=== PATIENT | male | born 1965 | race Caucasian/White ===

== ENCOUNTER 2024-03-04 09:44 | Observation (INO) | payer BC ==
[2024-03-04] MEDS: SODIUM CHLORIDE 0.9% 500 ML 500 ML IV ONE (10:14)
[2024-03-04] MEDS: SODIUM CHLORIDE 0.9% 1,000 ML IV ONE (10:15)
[2024-03-04] MEDS: SODIUM CHLORIDE 0.9% 1,000 ML IV SCH (10:16)
[2024-03-04 10:21] LABS: Basophils % (A) 0 %; Eosinophils % (A) 0 %; HCT 44.3 % (39.0-53.0); HGB 14.7 gm/dL (13.0-17.5); Lymphocytes # (A) 1.7 k/uL (1.0-4.8); Lymphocytes % (A) 22 %; MCH 31.4 pg (25.0-35.0); MCHC 33.3 g/dL (31.0-37.0); MCV 94.3 fL (80.0-100.0); Mean Platelet Volume 8.4; Monocytes # (A) 0.7 k/uL (0-1.0); Monocytes % (A) 9 %; Neutrophils # (A) 5.3 k/uL (1.3-7.7); Neutrophils % (A) 65 %; Platelet Count 239 k/uL (150-450); RDW 12.5 % (11.5-15.5); WBC 8.1 k/uL (3.8-10.6)
[2024-03-04 10:25] LABS: ALT 45 U/L (4-49); AST 49 U/L (17-59); African American GFR (CKD) >90 (>60 ml/min/1.73 sqM); Albumin 4.3 g/dL (3.5-5.0); Alkaline Phosphatase 92 U/L (38-126); Anion Gap 19 mmol/L; Blood Urea Nitrogen 18 mg/dL (9-20); Calcium 8.4 mg/dL (8.4-10.2); Carbon Dioxide 22 mmol/L (22-30); Chloride 92 mmol/L (98-107); Glucose 110 mg/dL (74-99); Lipase 106 U/L (23-300); Magnesium 2.3 mg/dL (1.6-2.3); Non-African American GFR(CKD) >90 (>60 ml/min/1.73 sqM); Potassium 3.3 mmol/L (3.5-5.1); Sodium 133 mmol/L (137-145); Total Protein 7.1 g/dL (6.3-8.2)
--- NOTE | 2024-03-04 10:32 | ED ---
Alcohol HPI - General Chief Complaint: Alcohol Stated Complaint: ETOH Time Seen by Provider: 03/04/24 09:49 Source: patient, EMS, RN notes reviewed Mode of arrival: EMS Limitations: no limitations - History of Present Illness Initial Comments: 58-year-old male presents emergency department via EMS from [facility] for alcohol intoxication. Patient was trying to check in but he was too intoxicated and wanted to leave. Patient had EMS called and arrives here patient apparently drank more alcohol after he already had breath alcohol at .4. Patient states he drinks at least 1/2 gallon a day patient states has been at other hospitals and but has not completed rehab of recently. Patient denies recent drug use. No physical complaints. - Related Data Home Medications Medication Instructions Recorded Confirmed Atorvastatin [Lipitor] 80 mg PO HS 03/04/24 03/04/24 Escitalopram [Lexapro] 20 mg PO DAILY 03/04/24 03/04/24 Gabapentin 600 mg PO TID 03/04/24 03/04/24 busPIRone HCL [Buspar] 7.5 mg PO DAILY 03/04/24 03/04/24 rOPINIRole HCL [Requip] 0.5 mg PO HS 03/04/24 03/04/24 Allergies Allergy/AdvReac Type Severity Reaction Status Date / Time No Known Allergies Allergy Verified 03/04/24 11:31 Review of Systems ROS Statement: Those systems with pertinent positive or pertinent negative responses have been documented in the HPI. ROS Other: All systems not noted in ROS Statement are negative. Past Medical History Additional Past Medical History / Comment(s): Pt unable or unwilling to answer. History of Any Multi-Drug Resistant Organisms: None Reported Additional Past Surgical History / Comment(s): Pt unable or unwilling to answer. Past Psychological History: Anxiety, Depression Smoking Status: Current every day smoker Past Alcohol Use History: Heavy General Exam Limitations: no limitations General appearance: alert, in no apparent distress, appears intoxicated Head exam: Present: atraumatic, normocephalic, normal inspection Eye exam: Present: normal appearance, PERRL, EOMI. Absent: scleral icterus, conjunctival injection, periorbital swelling ENT exam: Present: mucous membranes moist. Absent: normal exam Neck exam: Present: normal inspection. Absent: tenderness, meningismus, lymphadenopathy Respiratory exam: Present: normal lung sounds bilaterally. Absent: respiratory distress, wheezes, rales, rhonchi, stridor Cardiovascular Exam: Present: regular rate, normal rhythm, normal heart sounds. Absent: systolic murmur, diastolic murmur, rubs, gallop, clicks GI/Abdominal exam: Present: soft, normal bowel sounds. Absent: distended, tenderness, guarding, rebound, rigid Course Vital Signs 03/04/24 09:47 Temperature 98.1 F Pulse Rate 88 Respiratory 16 Rate Blood Pressure 139/88 O2 Sat by Pulse 96 Oximetry Medical Decision Making - Medical Decision Making Was pt. sent in by a medical professional or institution (, [facility], [facility], urgent care, hospital, or senior care...) When possible be specific @ -[facility] Did you speak to anyone other than the patient for history (EMS, parent, family, police, friend...)? What history was obtained from this source @ -No Did you review nursing and triage notes (agree or disagree)? Why? @ -I reviewed and agree with nursing and triage notes Were old charts reviewed (outside hosp., previous admission, EMS record, old EKG, old radiological studies, urgent care reports/EKG's, senior care records)? Report findings @ -No old charts were reviewed Differential Diagnosis (chest pain, altered mental status, abdominal pain women, abdominal pain men, vaginal bleeding, weakness, fever, dyspnea, syncope, headache, dizziness, GI bleed, back pain, seizure, CVA, palpatations, mental health, musculoskeletal)? @ -Alcohol intoxication alcohol withdrawal hypomagnesemia hypokalemia hyponatremia, weakness EKG interpreted by me (3pts min.). @ -None X-rays interpreted by me (1pt min.). @ -None done CT interpreted by me (1pt min.). @ -None done U/S interpreted by me (1pt. min.). @ -None done What testing was considered but not performed or refused? (CT, X-rays, U/S, labs)? Why? @ -None What meds were considered but not given or refused? Why? @ -None Did you discuss the management of the patient with other professionals (professionals i.e. , [facility], [facility], lab, RT, psych nurse, social service technician, sanitation worker cleaning machinery, teacher, nuclear officer, case sealer)? Give summary @ -Dr. Bob for admission secondary to severe alcohol intoxication Was smoking cessation discussed for >3mins.? @ -No Was critical care preformed (if so, how long)? @ -No Were there social determinants of health that impacted care today? How? (Homelessness, low income, unemployed, alcoholism, drug addiction, transportation, low edu. Level, literacy, decrease access to med. care, skilled nursing, rehab)? @ -No Was there de-escalation of care discussed even if they declined (Discuss DNR or withdrawal of care, Hospice)? DNR status @ -No What co-morbidities impacted this encounter? (DM, HTN, Smoking, COPD, CAD, Cancer, CVA, ARF, Chemo, Hep., AIDS, mental health diagnosis, sleep apnea, morbid obesity)? @ -None Was patient admitted / discharged? Hospital course, mention meds given and route, prescriptions, significant lab abnormalities, going to OR and other perti nent info. @ -Admitted patient found to have blood alcohol 375. Patient placed on CIWA, alcohol withdrawal protoco patient did have mild hypokalemia which was replaced. Undiagnosed new problem with uncertain prognosis? @ -No Drug Therapy requiring intensive monitoring for toxicity (Heparin, Nitro, Insulin, Cardizem)? @ -No Were any procedures done? @ -No Diagnosis/symptom? @ -Alcohol desiccation, hypokalemia Acute, or Chronic, or Acute on Chronic? @ -Acute Uncomplicated (without systemic symptoms) or Complicated (systemic symptoms)? @ -Complicated Side effects of treatment? @ -No Exacerbation, Progression, or Severe Exacerbation? @ -No Poses a threat to life or bodily function? How? (Chest pain, USA, AL, pneumonia, PE, COPD, DKA, ARF, appy, cholecystitis, CVA, Diverticulitis, Homicidal, Suicidal, threat to staff... and all critical care pts) @ -No - Lab Data Result diagrams: 03/04/24 10:06 03/04/24 10:06 Lab Results 03/04/24 03/04/24 Range/Units 10:06 10:06 WBC 8.1 (3.8-10.6) k/uL RBC 4.70 (4.30-5.90) m/uL Hgb 14.7 (13.0-17.5) gm/dL Hct 44.3 (39.0-53.0) % MCV 94.3 (80.0-100.0) fL MCH 31.4 (25.0-35.0) pg MCHC 33.3 (31.0-37.0) g/dL RDW 12.5 (11.5-15.5) % Plt Count 239 (150-450) k/uL MPV 8.4 Neutrophils % 65 % Lymphocytes % 22 % Monocytes % 9 % Eosinophils % 0 % Basophils % 0 % Neutrophils # 5.3 (1.3-7.7) k/uL Lymphocytes # 1.7 (1.0-4.8) k/uL Monocytes # 0.7 (0-1.0) k/uL Eosinophils # 0.0 (0-0.7) k/uL Basophils # 0.0 (0-0.2) k/uL Sodium 133 L (137-145) mmol/L Potassium 3.3 L (3.5-5.1) mmol/L Chloride 92 L (98-107) mmol/L Carbon Dioxide 22 (22-30) mmol/L Anion Gap 19 mmol/L BUN 18 (9-20) mg/dL Creatinine 0.59 L (0.66-1.25) mg/dL Est GFR (CKD-EPI)AfAm >90 (>60 ml/min/1.73 sqM) Est GFR (CKD-EPI)NonAf >90 (>60 ml/min/1.73 sqM) Glucose 110 H (74-99) mg/dL Calcium 8.4 (8.4-10.2) mg/dL Magnesium 2.3 (1.6-2.3) mg/dL Total Bilirubin 1.0 (0.2-1.3) mg/dL AST 49 (17-59) U/L ALT 45 (4-49) U/L Alkaline Phosphatase 92 (38-126) U/L Total Protein 7.1 (6.3-8.2) g/dL Albumin 4.3 (3.5-5.0) g/dL Lipase 106 (23-300) U/L Serum Alcohol 375 H* mg/dL Disposition Clinical Impression: Alcoholic intoxication, Hypokalemia Disposition: ADMITTED IP TO THIS HOSP Condition: Fair Time of Disposition: 11:04
[2024-03-04 10:39] LABS: Alcohol 375 mg/dL
[2024-03-04] MEDS ORDERED: ONDANSETRON 4 MG/2 ML VIAL IVP PRN (11:04)
[2024-03-04] MEDS ORDERED: NALOXONE 0.4 MG/ML 1 ML VIAL IV PRN (11:04)
[2024-03-04] MEDS ORDERED: LORazepam 2 MG/ML INJ IV PRN ×2 (11:06)
[2024-03-04 11:13] LABS: Appearance,Urine Clear (Clear); Bilirubin,Urine Negative (Negative); Blood,Urine Negative (Negative); Color,Urine Colorless; Glucose,Urine (UA) Negative (Negative); Ketones,Urine 2+ (Negative); Leukocyte Esterase,Urine Negative (Negative); Nitrite,Urine Negative (Negative); Protein,Urine Negative (Negative); Specific Gravity,Urine 1.003 (1.001-1.035); Urobilinogen,Urine <2.0 mg/dL (<2.0)
[2024-03-04 11:33] LABS: Amphetamine Screen,Urine Not Detected (NotDetected); Barbiturate Screen,Urine Not Detected (NotDetected); Benzodiazepines Screen,Urine Not Detected (NotDetected); Cocaine Screen,Urine Detected (NotDetected); Methadone Screen, Urine Not Detected (NotDetected); Opiate Screen,Urine Not Detected (NotDetected); Oxycodone Screen, Urine Not Detected (NotDetected); Phencyclidine Screen,Urine Not Detected (NotDetected); Tricyclic Antidepressant,Urine Not Detected (NotDetected); Urn Cannabinoid Scrn Not Detected (NotDetected)
[2024-03-04] MEDS: POTASSIUM CHLORIDE ER 20 MEQ TAB.ER PO STA (11:40)
[2024-03-04] MEDS: LORazepam 1 MG TAB PO PRN (12:42)
[2024-03-04] MEDS: LORazepam 2 MG/ML INJ IV PRN (14:02)
--- NOTE | 2024-03-04 15:29 | P.HPIM ---
History of Present Illness H&P Date: 03/04/24 58 year old M with PMH of EtOH abuse, RLS, Depression and HLD presents to the ED from [facility] for alcohol intoxication. Drinks 1/2 gallon liquor daily, last drink yesterday. Reports withdrawal symptoms when not drinking, EtOH induced seizures a few years ago. No current complaints except hunger. Reports not eating much food over the past week. Smokes 1 pack of cigarettes daily. BP 127/78, HR 102, RR 16, T 97.6F, 94% on 2L NC. CBC unremarkable. CMP Na 133, K 3.3, Cl 92, Cr 0.59, glu 110. Mag 2.3. Lipase 106. UA 2+ ketones. UDS + cocaine. Serum EtOH 375. General: non toxic, no distress, appears at stated age Derm: warm, dry Head: atraumatic, normocephalic, symmetric Eyes: EOMI, no lid lag, anicteric sclera Mouth: no lip lesion, mucus membranes moist Cardiovascular: Good distal perfusion in all 4 extremities. Normal S1S2. Lungs: Breathing comfortably , no accessory muscle use, CTA BL Ext: no gross muscle atrophy, no edema, no contractures Neuro: no focal neuro deficits Psych: Alert, oriented, appropriate affect Based on my assessment of this patient, this patient meets a high complexity level of care. EtOH intoxical with impending withdrawal Cocaine abuse Hyponatremia Hypokalemia Ketonuria RLS Depression HDL CIWA protocol with Ativan PRN. Fall and seizure precautions. Electrolyte abnormalities likely due to dehydration, start NS at 75 cc/hr, repeat BMP tomorrow. Replace potassium with KCl 40 meq PO x 1. Restart home medications. Anticipate discharge to [facility] if withdrawal symptoms controlled tomorrow. CODE STATUS: FULL CODE. DVT Prophylaxis: GI Prophylaxis: Protonix PO Designated medical POA if patient is not able to make medical decisions for themselves: I have reviewed the following customer consultant notes: ED note. I have reviewed the results of the following tests: As above. I have ordered the following tests: As above. I have discussed the care of this patient with the following independent historian: I have independently interpreted the following test below: I have discussed the management of this patient with the following physician: Past Medical History Additional Past Medical History / Comment(s): Pt unable or unwilling to answer. History of Any Multi-Drug Resistant Organisms: None Reported Additional Past Surgical History / Comment(s): Pt unable or unwilling to answer. Past Psychological History: Anxiety, Depression Smoking Status: Current every day smoker Past Alcohol Use History: Heavy Medications and Allergies Home Medications Medication Instructions Recorded Confirmed Type Atorvastatin [Lipitor] 80 mg PO HS 03/04/24 03/04/24 History Escitalopram [Lexapro] 20 mg PO DAILY 03/04/24 03/04/24 History Gabapentin 600 mg PO TID 03/04/24 03/04/24 History busPIRone HCL [Buspar] 7.5 mg PO DAILY 03/04/24 03/04/24 History rOPINIRole HCL [Requip] 0.5 mg PO HS 03/04/24 03/04/24 History Allergies Allergy/AdvReac Type Severity Reaction Status Date / Time No Known Allergies Allergy Verified 03/04/24 11:31 Physical Exam Vitals: Vital Signs Temp Pulse Resp BP Pulse Ox 03/04/24 14:49 97.6 F 102 H 16 127/78 94 L 03/04/24 14:15 92 16 03/04/24 14:08 95 16 134/75 94 L 03/04/24 12:44 16 130/71 95 03/04/24 12:10 98.5 F 83 18 137/78 96 03/04/24 09:47 98.1 F 88 16 139/88 96 Intake and Output 03/04/24 03/04/24 03/04/24 06:59 14:59 22:59 Other: Weight 68.039 kg Results CBC & Chem 7: 03/04/24 10:06 03/04/24 10:06 Labs: Abnormal Lab Results - Last 24 Hours (Table) 03/04/24 03/04/24 Range/Units 10:06 11:05 Sodium 133 L (137-145) mmol/L Potassium 3.3 L (3.5-5.1) mmol/L Chloride 92 L (98-107) mmol/L Creatinine 0.59 L (0.66-1.25) mg/dL Glucose 110 H (74-99) mg/dL Urine Ketones 2+ H (Negative) Urine Cocaine Screen Detected H (NotDetected) Serum Alcohol 375 H* mg/dL
[2024-03-04] MEDS: GABAPENTIN 300 MG CAP PO SCH (16:31)
[2024-03-04] MEDS: ATORVASTATIN 80 MG TAB PO SCH (20:10)
[2024-03-05] MEDS: LORazepam 0.5 MG TAB PO PRN (00:19)
[2024-03-05 07:34] LABS: African American GFR (CKD) >90 (>60 ml/min/1.73 sqM); Anion Gap 9 mmol/L; Blood Urea Nitrogen 19 mg/dL (9-20); Calcium 8.3 mg/dL (8.4-10.2); Carbon Dioxide 27 mmol/L (22-30); Chloride 97 mmol/L (98-107); Glucose 327 mg/dL (74-99); Non-African American GFR(CKD) >90 (>60 ml/min/1.73 sqM); Potassium 3.1 mmol/L (3.5-5.1); Sodium 133 mmol/L (137-145)
[2024-03-05] MEDS ORDERED: DEXTROSE 50% SYRINGE 50 ML IVP PRN ×2 (08:29)
[2024-03-05 08:35] VITALS: BP 145/85; PULSE 87; RESP 17; TEMP 99
[2024-03-05] MEDS: POTASSIUM CHLORIDE ER 20 MEQ TAB.ER PO STA (09:14)
[2024-03-05] MEDS: busPIRone HCl 5 MG TAB PO SCH (09:14)
[2024-03-05] MEDS: ESCITALOPRAM 20 MG TAB PO SCH (09:15)
[2024-03-05] MEDS: POTASSIUM CHLORIDE 10 MEQ in WATER FOR INJECTION 1 100ML.BAG IVPB SCH (09:15)
[2024-03-05] MEDS: THIAMINE 100 MG TAB PO SCH (09:16)
--- NOTE | 2024-03-05 09:53 | P.DS ---
Providers Date of admission: 03/04/24 10:48 Expected date of discharge: 03/05/24 Attending physician: Juan F Bob MD Primary care physician: Stated None Hospital Course: 58 year old M with PMH of EtOH abuse, RLS, Depression and HLD presents to the ED from [facility] for alcohol intoxication. Drinks 1/2 gallon liquor daily, last drink yesterday. Reports withdrawal symptoms when not drinking, EtOH induced seizures a few years ago. No current complaints except hunger. Reports not eating much food over the past week. Smokes 1 pack of cigarettes daily. BP 127/78, HR 102, RR 16, T 97.6F, 94% on 2L NC. CBC unremarkable. CMP Na 133, K 3.3, Cl 92, Cr 0.59, glu 110. Mag 2.3. Lipase 106. UA 2+ ketones. UDS + cocaine. Serum EtOH 375. Patient was admitted for alcohol intoxication and started on CIWA protocol with Ativan PRN. 03/05 Patient was seen and examined. Motivated to go to [facility]. BMP Na 133, K 3.1, Cl 97, Cr 0.59, glu 327, Ca 8.3. Plans for discharge to [facility] today. KCl 40 meq PO x 1 prior to discharge. Prescribed KCl 20 meq PO BID x 1 week. Repeat BMP in 3 days to be followed up with PCP. General: non toxic, no distress, appears at stated age Derm: warm, dry Head: atraumatic, normocephalic, symmetric Eyes: EOMI, no lid lag, anicteric sclera Mouth: no lip lesion, mucus membranes moist Cardiovascular: Good distal perfusion in all 4 extremities. Normal S1S2. Lungs: Breathing comfortably , no accessory muscle use, CTA BL Ext: no gross muscle atrophy, no edema, no contractures Neuro: no focal neuro deficits Psych: Alert, oriented, appropriate affect Discharge Diagnosis: EtOH intoxical with impending withdrawal Cocaine abuse Hyponatremia Hypokalemia Ketonuria RLS Depression HDL This complex discharge took 35 minutes to complete. Patient Condition at Discharge: Stable Plan - Discharge Summary Discharge Rx Participant: No New Discharge Prescriptions: New Potassium Chloride ER [K-Dur 20] 20 meq PO BID #14 tab Continue Atorvastatin [Lipitor] 80 mg PO HS busPIRone HCL [Buspar] 7.5 mg PO DAILY rOPINIRole HCL [Requip] 0.5 mg PO HS Gabapentin 600 mg PO TID Escitalopram [Lexapro] 20 mg PO DAILY Discharge Medication List Atorvastatin [Lipitor] 80 mg PO HS 03/04/24 [History] Escitalopram [Lexapro] 20 mg PO DAILY 03/04/24 [History] Gabapentin 600 mg PO TID 03/04/24 [History] busPIRone HCL [Buspar] 7.5 mg PO DAILY 03/04/24 [History] rOPINIRole HCL [Requip] 0.5 mg PO HS 03/04/24 [History] Potassium Chloride ER [K-Dur 20] 20 meq PO BID #14 tab 03/05/24 [Rx] Follow up Appointment(s)/Referral(s): None,Stated [Primary Care Provider] - 1-2 days Ambulatory/Diagnostic Orders: Basic Metabolic Panel [LAB.AMB] Time Frame: 3 Days, Location: None Selected Patient Instructions/Handouts: Alcohol Intoxication (DC) Discharge/Stand Alone Forms: AA Meetings [facility] 24 - [facility], AA Meetings [place], Who Do I Call?, Community Resources, Outpatient Counseling, Inp Substance Abuse Facilities, Area PCPs Discharge Disposition: HOME SELF-CARE
[2024-03-05] MEDS ORDERED: INSULIN ASPART (NovoLOG) 100 UNIT/ML VIAL SQ SCH (12:30)
== END 2024-03-05 09:38 | disposition home or self-care (01) ==
LOC: EC 09:44 → 6NMEDSUR 10:48
PROVIDERS: ADMIT Student in an Organized Health Care Education/Training Program; ATTEND Student in an Organized Health Care Education/Training Program
DX: F10.129 Alcohol abuse with intoxication, unspecified (principal); E87.6 Hypokalemia; E87.1 Hypo-osmolality and hyponatremia; F10.139 Alcohol abuse with withdrawal, unspecified; F14.10 Cocaine abuse, uncomplicated; F17.210 Nicotine dependence, cigarettes, uncomplicated; F32.A Depression, unspecified; G25.81 Restless legs syndrome; E78.5 Hyperlipidemia, unspecified; Y90.8 Blood alcohol level of 240 mg/100 ml or more; Z79.899 Other long term (current) drug therapy
CPT/HCPCS: 96361; 96374; 99285; 36415; 80053; 80048; 83690; 83735; 85025; 81003; 80306; 80320; G0378 ×2; J2060